=== PATIENT | male | born 1975 | race Caucasian/White ===

== ENCOUNTER 2017-03-21 13:22 | Emergency (ER) | payer OTHER ==
[2017-03-21 14:04] LABS: BASOPHILS 0.6 %; BASOPHILS ABSOLUTE 0.06 10/3/uL (0.0-0.16); EOSINOPHILS 6.1 %; EOSINOPHILS ABSOLUTE 0.57 10/3/uL (0.0-0.53); ER CBC TAT 0 Hrs 08 Mins; HEMATOCRIT 45.5 % (40.0-51.0); HEMOGLOBIN 15.4 g/dL (13.6-17.8); IMMATURE GRANULOCYTES 0.2 %; IMMATURE GRANULOCYTES ABSOLUTE 0.02 10/3/uL (0.0-0.11); LYMPHOCYTES 46.7 %; LYMPHOCYTES ABSOLUTE 4.35 10/3/uL (0.67-4.30); MEAN CORPUS HGB CONC 33.8 g/dL (32.0-36.0); MEAN CORPUSCULAR HEMOGLOB 30.4 pg (26.0-34.0); MEAN CORPUSCULAR VOLUME 89.7 fL (80-100); MEAN PLATELET VOLUME 9.4 fL (9.2-13.0); MONOCYTES 8.8 %; MONOCYTES ABSOLUTE 0.82 10/3/uL (0.21-1.20); NEUTROPHILS 37.6 %; PLATELET COUNT 323 10/3/uL (150-400); RBC DISTRIBUTION WIDTH 13.3 % (12.0-16.0); RED CELL COUNT 5.07 10/6/uL (4.7-6.1); WHITE BLOOD CELLS 9.3 10/3/uL (4.5-10.5)
[2017-03-21 14:05] LABS: MANUAL DIFF NO %
[2017-03-21 14:16] LABS: A/G RATIO 0.9 (0.7-1.9); ALBUMIN 3.1 G/DL (3.5-5.0); ALKALINE PHOSPHATASE 106 U/L (45-117); BUN (BLOOD UREA NITROGEN) 11 MG/DL (6-23); CALCIUM, SERUM 8.3 MG/DL (8.5-10.4); CHLORIDE, SERUM 110 MMOL/L (96-112); CO2 (CARBON DIOXIDE) 30 MMOL/L (24-34); CREATININE 0.77 MG/DL (0.70-1.30); GFR AFRICAN AMERICAN 131 ML/MIN (>=60); GFR NON AFRICAN AMERICAN 113 ML/MIN (>=60); GLOBULIN 3.4 G/DL (2.5-4.1); GLUCOSE, SERUM 128 MG/DL (60-99); SGPT(ALT) 33 U/L (5-65); SODIUM, SERUM 142 MMOL/L (135-148); TOTAL BILIRUBIN 0.2 MG/DL (0-1.2); TOTAL PROTEIN 6.5 G/DL (6.0-8.5)
[2017-03-21 14:17] LABS: POTASSIUM, SERUM 4.3 MMOL/L (3.5-5.3)
[2017-03-21 14:18] LABS: SGOT(AST) 19 U/L (5-40)
[2017-03-21 14:40] LABS: ASCORBIC ACID (UR NOT ORDER) NEG (NEG); BILIRUBIN, URINE NEGATIVE (NEG); ER URINALYSIS TAT 0 Hrs 10 Mins; KETONE, URINE NEGATIVE (NEG); LEUKOCYTE ESTERASE(NOT OR NEG (NEG); NITRITE (URINE) NEG (NEG); WBC (NOT ORDERED) (RFLEX) < 1 (0-5)
[2017-03-21 15:14] LABS: TROPONIN I <0.02 NG/ML (<0.05)
== END 2017-03-21 15:41 | disposition home or self-care (01) ==
LOC: ER 13:22
PROVIDERS: Nurse Practitioner Acute Care
DX: K80.50 Calculus of bile duct without cholangitis or cholecystitis without obstruction (principal); I10 Essential (primary) hypertension; F17.200 Nicotine dependence, unspecified, uncomplicated
CPT/HCPCS: 80053; 81001; 83690; 84484; 85025; 93005; 96374; 96375; 99284; J1170; J2405

== ENCOUNTER 2017-03-31 21:40 | Inpatient (IN) | payer OTHER ==
--- NOTE | ~2017-03-31 | HP ---
History And Physical [place] [id number] [facility] [place]. [address] NAME: JAZMYN STARK : 75 STATUS : ADM Diony PAT#: [id number] AGE: 41 ADM/REG DATE : 03/31/17 MR#: [id number] REPORT SERV DATE: 04/01/17 DICTATED BY: DAINA HOFFMANN DATE: 04/01/17 REPORT STATUS : Draft TRANSCRIBED BY: MODL DATE: 04/01/17 DATE OF ADMISSION: 03/31/2017 CHIEF COMPLAINT: A 41-year-old male presenting with right upper quadrant pain and right shoulder pain. HISTORY OF PRESENT ILLNESS: The patient's history was obtained through careful interview with the patient and , coupled with review of [facility] medical records. The patient for more than a month now has been having intermittent right upper quadrant abdominal pain that radiates into his right shoulder. He actually came to the emergency department on March 21 and was given a diagnosis of "biliary colic" and was seen outpatient by Dr. Teran, surgeon, who believed that the patient needed his gallbladder out. The patient was feeling fine but then two days ago, began to have increasing abdominal pain again. He describes right upper quadrant pain radiating to the right shoulder and to the epigastric area and sometimes towards the back. It has a cramping quality, sometimes a sharp quality, 9/10 severity at its worse. The patient has had some vomiting and nausea. He has had chills. His abdominal pain is worsened by food intake. There have been no fevers. He has had mild diarrhea. He has had some shortness of breath associated with his pain as well and sometimes he describes it as "stomach convulsing." REVIEW OF SYSTEMS: Otherwise 14-point review of systems was obtained and was negative. PAST MEDICAL HISTORY: 1. Diverticulitis with diverticular abscess. 2. Hypertension. 3. No cardiac disease, no lung disease. PAST SURGICAL HISTORY: 1. Ankle surgery x3. 2. Partial colectomy for diverticular abscess in 2016 at [facility]. 3. Compartment syndrome of the lower extremities. ALLERGIES: NO KNOWN DRUG ALLERGIES. SOCIAL HISTORY: He is . He served in the [employer] for 26 years in [place] and [place], now he works as a blanca at a grocery store. He has one 17-year-old son. He is . Lives in [place], [place]. He smokes cigarettes. No alcohol use. FAMILY HISTORY: Diabetes. History And Physical [address] [address] NAME: JAZMYN STARK : 75 STATUS : ADM Diony PAT#: [id number] AGE: 41 ADM/REG DATE : 03/31/17 MR#: [id number] REPORT SERV DATE: 04/01/17 DICTATED BY: DAINA HOFFMANN DATE: 04/01/17 REPORT STATUS : Draft TRANSCRIBED BY: KIMBERLY DATE: 04/01/17 CURRENT MEDICATIONS: Lisinopril 40 mg p.o. daily. PHYSICAL EXAMINATION: VITAL SIGNS: Temperature 97.8, pulse 91, blood pressure 148/84, respiratory rate 20, and O2 saturation 99% on room air. GENERAL: A pleasant, cooperative male, but he describes distress and looks distressed because of his abdominal pain and nausea. HEENT: Pupils equal, round, and reactive to light. No conjunctival pallor. No scleral icterus. Nares are patent. Oropharynx is clear of obstruction. Moist mucous membranes. NECK: Trachea midline. No thyromegaly. LYMPH: No cervical lymphadenopathy. No supraclavicular lymphadenopathy. RESPIRATORY: Clear to auscultation at bases. No wheezes, rales, or rhonchi. Normal respiratory effort. CARDIOVASCULAR: Regular rate and rhythm. No murmurs, rubs, or gallops. No current extremity edema is appreciated. ABDOMEN: Significant right upper quadrant pain, significant epigastric abdominal pain. No flank tenderness. No rebound. No guarding. Nondistended. No hepatosplenomegaly can be appreciated. DERMATOLOGICAL: Warm, dry extremities. No pallor, no cyanosis. PSYCHIATRIC: Normal affect. Good mood. Alert and oriented x3. LABORATORY DATA: White blood cell count 12.0, hemoglobin 16, hematocrit 47, platelets 355. Sodium 143, potassium 4.5, chloride 111, bicarb 29, BUN 10, creatinine 0.73, glucose 111, lipase 1162. Liver enzymes within normal limits. Urinalysis negative for infection. STUDIES: 1. CT of the abdomen and pelvis shows no acute intraabdominal process. 2. EKG by my own evaluation shows sinus rhythm, no major abnormalities. ASSESSMENT AND PLAN: 1. Biliary colic, has been advised to have a cholecystectomy. We will ask for surgery consult with Dr. Teran. 2. Biliary pancreatitis, mild. No evidence on CT scan but just by exam and mild elevation in lipase. Provide supportive care. Placed on IV narcotic pain management and IV fluids. 3. Leukocytosis, empiric IV antibiotics. KPL/MODL Daina Hoffmann M.D. / [id number] CC: History And Physical [address] [address] NAME: JAZMYN STARK : 75 STATUS : ADM Diony PAT#: [id number] AGE: 41 ADM/REG DATE : 03/31/17 MR#: [id number] REPORT SERV DATE: 04/01/17 DICTATED BY: DAINA HOFFMANN DATE: 04/01/17 REPORT STATUS : Draft TRANSCRIBED BY: KIMBERLY DATE: 04/01/17 Della Diallo M.D. Roby Teran M.D.
--- NOTE | ~2017-03-31 | OP ---
Record Of Operation [facility] [address] [place]. [address] NAME: JAZMYN STARK : 75 STATUS : DIS IN PAT#: [id number] AGE: 41 ADM/REG DATE : 03/31/17 MR#: [id number] REPORT SERV DATE: 04/03/17 DICTATED BY: EDWIN TOM DATE: 04/03/17 REPORT STATUS : Draft TRANSCRIBED BY: MODL DATE: 04/03/17 DATE OF PROCEDURE: 04/02/2017 PREOPERATIVE DIAGNOSES: 1. Chronic cholecystitis with cholelithiasis. 2. Biliary pancreatitis. POSTOPERATIVE DIAGNOSES: 1. Chronic cholecystitis with cholelithiasis. 2. Biliary pancreatitis. PROCEDURE: 1. Laparoscopic cholecystectomy (two-site). 2. Laparoscopic intraoperative cholangiogram. DESCRIPTION OF OPERATIVE PROCEDURE: The patient was brought to the operating suite, placed in supine position, underwent satisfactory general endotracheal anesthesia without incident. The skin of the abdomen was scrubbed, prepped, and draped in usual sterile fashion. 0.5% Marcaine with epinephrine was utilized as supplemental local anesthesia at all intended trocar sites. Initially, an infraumbilical incision was performed dissecting through the skin and subcutaneous tissues to the umbilical fascia. This was grasped with a Dony clamp and elevated and a disposable Veress insufflation needle was inserted through the umbilical fascia into the peritoneal cavity. Intraperitoneal tip location ascertained using saline hanging drop method. CO2 insufflated for pressures of 15 mmHg throughout the case. After adequate insufflation pressure achieved, Veress needle was removed. Disposable bladed/shielded 11 mm trocar inserted through the umbilical fascia into the peritoneal cavity following which a rigid forward-viewing 10 mm laparoscope was inserted. Visualization of the intraabdominal parietes revealed no evidence of injury from initial insufflation or puncture. A cursory examination of pelvis was normal. Attention was turned to the upper abdomen where an additional 5 mm trocar was placed to the right of the falciform ligament and then an additional 5 mm grasping instrument inserted through the umbilical fascia next to the umbilical trocar. The fundus and body of the gallbladder grasped and elevated. There were some edematous changes from the biliary pancreatitis. Dissection of the triangle of Calot was successful in identifying and skeletonizing the cystic duct and cystic duct and common duct junction as well as the cystic artery. The cystic duct was isolated and a single clip was placed on the gallbladder side of the cystic duct. A small enterotomy was created in the cystic duct and then a percutaneously introduced cholangiosheath was inserted through the upper abdominal wall under direct visualization. A saline flush cholangiocath was trimmed and inserted down the sheath, flushed with saline, Record Of Operation [facility] [address] [place]. [address] NAME: JAZMYN STARK : 75 STATUS : DIS IN PAT#: [id number] AGE: 41 ADM/REG DATE : 03/31/17 MR#: [id number] REPORT SERV DATE: 04/03/17 DICTATED BY: EDWIN TOM DATE: 04/03/17 REPORT STATUS : Draft TRANSCRIBED BY: KIMBERLY DATE: 04/03/17 and advanced into the cystic duct. It was retained with a plastic locking clip. Sequential fluoroscopic cholangiography was performed revealing excellent visualization of both the intra and extrahepatic biliary ductal system. Specifically, there was no ductal dilatation. No major aberrant ductal anatomy and there was noted to be free spillage of dye into the duodenum. The retaining clip was removed as well as the cholangiocath. The cystic duct was controlled with further polymer clips, and likewise, the cystic artery was controlled and divided as well as the cystic duct. Using spatula cautery dissection, the peritoneal attachments to the gallbladder and liver were divided. The gallbladder was removed from the subhepatic space. Hemostasis was assured. Next, the camera was switched to the 5 mm epigastric port. An Endo retrieval pouch was inserted through the umbilical port and the gallbladder was placed inside this for retrieval. Trocars were removed. No muscular bleeding was noted. The gallbladder retrieved inside the Endo retrieval pouch, it was opened and found to contain a lot of small stones. CO2 was allowed to egress from peritoneal cavity. No muscular bleeding was noted. The umbilicus was closed with [id number] suture of 0 Vicryl, subcutaneous tissue closed with interrupted 4-0 Vicryl, running subcuticular stitch 4-0 Vicryl for the skin. Dermabond skin adhesive placed. The patient tolerated the procedure well and was returned to PACU in stable condition. At the termination of the procedure, sponge, needle, lap, and instrument counts were correct x3. ESTIMATED BLOOD LOSS: Less than 5-10 mL. WR/MODL Edwin Tom M.D. / [id number] CC: Della Hagan M.D.
--- NOTE | ~2017-03-31 | DS ---
Discharge Summary [facility] [address] [place]. [address] NAME: JAZMYN STARK : 75 STATUS : DIS IN PAT#: [id number] AGE: 41 ADM/REG DATE : 03/31/17 MR#: [id number] REPORT SERV DATE: 04/03/17 DICTATED BY: JEFFERY ELLINGTON DATE: 04/02/17 REPORT STATUS : Draft TRANSCRIBED BY: MODL DATE: 04/02/17 ADMISSION DATE: 03/31/2017 DISCHARGE DATE: 04/02/2017 DISCHARGE DIAGNOSES: Biliary colic in the setting of chronic cholecystitis and his acute pancreatitis that have resolved now, abdominal pain, leukocytosis, and hypertension. DISCHARGE MEDICATION: Lisinopril 40 mg daily. HISTORY OF PRESENT ILLNESS: A pleasant 41-year-old white male, presented with right upper quadrant abdominal pain, right shoulder pain. Please see the initial H and P of Dr. Jake Lockhart. This patient is admitted to the Hospitalist Service for further evaluation and treatment. CONSULTANTS DURING THIS ADMISSION: Include General Surgery, Dr. Isidro. CONTINUATION IN HOSPITAL COURSE: The patient was initially placed on IV antibiotics, fluids. Lab work was ordered and followed with consultation placed to General Surgery for further workup. The patient was seen by Dr. Isidro, who recommended laparoscopic cholecystectomy to be performed given his elevated lipase, persistent symptoms of abdominal pain. The patient remained afebrile. White blood cells trended upwards to 13.3. His antibiotics were stopped. He underwent the laparoscopic cholecystectomy on 04/02/2017 and recovered well from that. His lipase trended downward from 1162 to 155. He has felt well postoperatively. During this admission, his blood pressures have been somewhat elevated in the 160-170 systolic range. I have recommended post discharge a followup with his primary care, Dr. Jeffery Enriquez for discussion regarding his hypertension and followup post hospitalization. The patient is in agreement with this plan going forward, so he will be discharged on the evening of 04/02/2017 with that medication regimen and follow up plan. DICTATED BY: Jeffery Ellington NP CSC/KIMBERLY Jeffery Ellington NP / [id number] CC: Opal Morrell M.D. Jeffery Enriquez M.D.
[2017-03-31 20:31] LABS: BASOPHILS 0.5 %; BASOPHILS ABSOLUTE 0.06 10/3/uL (0.0-0.16); EOSINOPHILS 8.5 %; EOSINOPHILS ABSOLUTE 1.02 10/3/uL (0.0-0.53); ER CBC TAT 0 Hrs 09 Mins; HEMATOCRIT 47.5 % (40.0-51.0); HEMOGLOBIN 16.2 g/dL (13.6-17.8); IMMATURE GRANULOCYTES 0.2 %; IMMATURE GRANULOCYTES ABSOLUTE 0.02 10/3/uL (0.0-0.11); LYMPHOCYTES 37.7 %; LYMPHOCYTES ABSOLUTE 4.54 10/3/uL (0.67-4.30); MANUAL DIFF NO %; MEAN CORPUS HGB CONC 34.1 g/dL (32.0-36.0); MEAN CORPUSCULAR HEMOGLOB 29.8 pg (26.0-34.0); MEAN CORPUSCULAR VOLUME 87.3 fL (80-100); MEAN PLATELET VOLUME 9.8 fL (9.2-13.0); MONOCYTES 9.1 %; PLATELET COUNT 355 10/3/uL (150-400); RBC DISTRIBUTION WIDTH 13.2 % (12.0-16.0); RED CELL COUNT 5.44 10/6/uL (4.7-6.1)
[2017-03-31 20:50] LABS: A/G RATIO 0.9 (0.7-1.9); ALBUMIN 3.5 G/DL (3.5-5.0); ALKALINE PHOSPHATASE 108 U/L (45-117); BUN (BLOOD UREA NITROGEN) 10 MG/DL (6-23); CALCIUM, SERUM 8.4 MG/DL (8.5-10.4); CHLORIDE, SERUM 111 MMOL/L (96-112); CO2 (CARBON DIOXIDE) 29 MMOL/L (24-34); CREATININE 0.73 MG/DL (0.70-1.30); GFR AFRICAN AMERICAN 134 ML/MIN (>=60); GFR NON AFRICAN AMERICAN 115 ML/MIN (>=60); GLOBULIN 3.7 G/DL (2.5-4.1); GLUCOSE, SERUM 111 MG/DL (60-99); POTASSIUM, SERUM 4.5 MMOL/L (3.5-5.3); SGPT(ALT) 31 U/L (5-65); SODIUM, SERUM 143 MMOL/L (135-148); TOTAL BILIRUBIN 0.4 MG/DL (0-1.2); TOTAL PROTEIN 7.2 G/DL (6.0-8.5)
[2017-03-31 20:53] LABS: SGOT(AST) 17 U/L (5-40)
[2017-03-31 20:54] LABS: ASCORBIC ACID (UR NOT ORDER) NEG (NEG); BILIRUBIN, URINE NEGATIVE (NEG); KETONE, URINE NEGATIVE (NEG); LEUKOCYTE ESTERASE(NOT OR NEG (NEG); NITRITE (URINE) NEG (NEG); WBC (NOT ORDERED) (RFLEX) < 1 (0-5)
[2017-03-31 20:56] LABS: ER URINALYSIS TAT 0 Hrs 32 Mins
[2017-03-31 21:36] LABS: DIRECT BILIRUBIN < 0.1 MG/DL (0.0-0.4); INDIRECT BILIRUBIN(NOT ORDER) 0.3 MG/DL (0.1-0.9)
[2017-03-31] MEDS ORDERED: ZESTRIL40 MG PO (23:43)
[2017-04-01 05:32] LABS: INTERNATIONAL NORMAL RATI 1.1 UNITS (-); PARTIAL THROMBO TIME 28.3 SEC (22.5-37.2); PROTIME (NOT ORD) 13.8 SEC (12.0-14.5)
[2017-04-01 05:35] LABS: HEMATOCRIT 44.5 % (40.0-51.0); MEAN CORPUS HGB CONC 33.7 g/dL (32.0-36.0); MEAN CORPUSCULAR HEMOGLOB 29.4 pg (26.0-34.0); MEAN CORPUSCULAR VOLUME 87.1 fL (80-100); MEAN PLATELET VOLUME 10.2 fL (9.2-13.0); PLATELET COUNT 319 10/3/uL (150-400); RBC DISTRIBUTION WIDTH 13.4 % (12.0-16.0); RED CELL COUNT 5.11 10/6/uL (4.7-6.1); WHITE BLOOD CELLS 13.3 10/3/uL (4.5-10.5)
[2017-04-01 05:36] LABS: MANUAL DIFF YES %
[2017-04-01 05:59] LABS: ALBUMIN 3.3 G/DL (3.5-5.0); BUN (BLOOD UREA NITROGEN) 9 MG/DL (6-23); CALCIUM, SERUM 8.5 MG/DL (8.5-10.4); CHLORIDE, SERUM 108 MMOL/L (96-112); CO2 (CARBON DIOXIDE) 26 MMOL/L (24-34); CREATININE 0.74 MG/DL (0.70-1.30); GFR AFRICAN AMERICAN 133 ML/MIN (>=60); GFR NON AFRICAN AMERICAN 115 ML/MIN (>=60); GLOBULIN 3.3 G/DL (2.5-4.1); GLUCOSE, SERUM 91 MG/DL (60-99); POTASSIUM, SERUM 4.2 MMOL/L (3.5-5.3); SGOT(AST) 14 U/L (5-40); SGPT(ALT) 30 U/L (5-65); SODIUM, SERUM 139 MMOL/L (135-148); TOTAL BILIRUBIN 0.3 MG/DL (0-1.2); TOTAL PROTEIN 6.6 G/DL (6.0-8.5); TROPONIN I <0.02 NG/ML (<0.05)
[2017-04-01 06:01] LABS: ALKALINE PHOSPHATASE 90 U/L (45-117)
[2017-04-01 06:19] LABS: BASOPHILS 2 %; BASOPHILS ABSOLUTE (CALC) 0.27 10/3/uL (0.0-0.16); EOSINOPHILS 6 %; LYMPHOCYTES 37 %; LYMPHOCYTES ABSOLUTE (CALC) 4.92 10/3/uL (0.67-4.30); METAMYELOCYTES 3 %; MONOCYTES 4 %; MONOCYTES ABSOLUTE (CALC) 0.53 10/3/uL (0.21-1.20); NEUTROPHILS ABSOLUTE (CALC) 6.38 10/3/uL (2.02-8.40); PLATELET ESTIMATE ADQ (ADEQUATE); SEGMENTED NEUTROPHIL (0) 48 %; TOTAL NUCLEATED CELLS 100
[2017-04-01 06:20] LABS: RBC MORPHOLOGY NORM (NORMAL)
[2017-04-02 03:55] LABS: BASOPHILS 0.4 %; BASOPHILS ABSOLUTE 0.05 10/3/uL (0.0-0.16); EOSINOPHILS 6.6 %; EOSINOPHILS ABSOLUTE 0.82 10/3/uL (0.0-0.53); HEMATOCRIT 47.3 % (40.0-51.0); HEMOGLOBIN 16.1 g/dL (13.6-17.8); IMMATURE GRANULOCYTES 0.3 %; IMMATURE GRANULOCYTES ABSOLUTE 0.04 10/3/uL (0.0-0.11); LYMPHOCYTES 31.6 %; LYMPHOCYTES ABSOLUTE 3.93 10/3/uL (0.67-4.30); MEAN CORPUSCULAR VOLUME 88.2 fL (80-100); MONOCYTES ABSOLUTE 1.12 10/3/uL (0.21-1.20); NEUTROPHILS 52.1 %; NEUTROPHILS ABSOLUTE 6.48 10/3/uL (2.02-8.40); PLATELET COUNT 328 10/3/uL (150-400); RBC DISTRIBUTION WIDTH 13.2 % (12.0-16.0); RED CELL COUNT 5.36 10/6/uL (4.7-6.1); WHITE BLOOD CELLS 12.4 10/3/uL (4.5-10.5)
[2017-04-02 03:56] LABS: MANUAL DIFF NO %
[2017-04-02 04:09] LABS: ALBUMIN 3.6 G/DL (3.5-5.0); BUN (BLOOD UREA NITROGEN) 10 MG/DL (6-23); CHLORIDE, SERUM 108 MMOL/L (96-112); CO2 (CARBON DIOXIDE) 29 MMOL/L (24-34); CREATININE 0.86 MG/DL (0.70-1.30); GFR AFRICAN AMERICAN 125 ML/MIN (>=60); GFR NON AFRICAN AMERICAN 108 ML/MIN (>=60); GLOBULIN 3.6 G/DL (2.5-4.1); GLUCOSE, SERUM 91 MG/DL (60-99); POTASSIUM, SERUM 4.5 MMOL/L (3.5-5.3); SGOT(AST) 13 U/L (5-40); SGPT(ALT) 26 U/L (5-65); SODIUM, SERUM 141 MMOL/L (135-148); TOTAL BILIRUBIN 0.6 MG/DL (0-1.2); TOTAL PROTEIN 7.2 G/DL (6.0-8.5)
[2017-04-02 04:28] LABS: ALKALINE PHOSPHATASE 108 U/L (45-117)
== END 2017-04-02 18:10 | disposition home or self-care (01) | DRG 418 ==
LOC: ER 21:40 → CDU1 22:59 → SDC/OF 04-02 13:33
PROVIDERS: Hospitalist; Internal Medicine; Specialist
PROC: BF121ZZ Fluoroscopy of Gallbladder using Low Osmolar Contrast (ICD-10-PCS; 2017-04-02)
PROC: 0FT44ZZ Resection of Gallbladder, Percutaneous Endoscopic Approach (ICD-10-PCS; principal; 2017-04-02 13:00)
DX: K85.10 Biliary acute pancreatitis without necrosis or infection (principal); K80.10 Calculus of gallbladder with chronic cholecystitis without obstruction; I10 Essential (primary) hypertension; F17.210 Nicotine dependence, cigarettes, uncomplicated; Z83.3 Family history of diabetes mellitus; Z90.49 Acquired absence of other specified parts of digestive tract; Z98.890 Other specified postprocedural states
CPT/HCPCS: 74176; 74300; 80053; 81001; 82248; 83690; 83735; 84443; 84484; 85025; 85610; 85730; 88304; 93005; 96374; 96375; 99285; A9270-GY; C9113; J0360; J0690; J1170; J1956; J2250; J2405; J2550; J2710; J3010; Q9967

== ENCOUNTER 2017-04-08 12:02 | Emergency (ER) | payer OTHER ==
[2017-04-08 12:02] LABS: BASOPHILS 0.7 %; BASOPHILS ABSOLUTE 0.09 10/3/uL (0.0-0.16); HEMATOCRIT 47.8 % (40.0-51.0); IMMATURE GRANULOCYTES 0.7 %; IMMATURE GRANULOCYTES ABSOLUTE 0.09 10/3/uL (0.0-0.11); LYMPHOCYTES 30.2 %; LYMPHOCYTES ABSOLUTE 4.06 10/3/uL (0.67-4.30); MEAN CORPUS HGB CONC 33.5 g/dL (32.0-36.0); MEAN CORPUSCULAR HEMOGLOB 29.5 pg (26.0-34.0); MEAN CORPUSCULAR VOLUME 88.2 fL (80-100); MEAN PLATELET VOLUME 9.6 fL (9.2-13.0); MONOCYTES 8.8 %; MONOCYTES ABSOLUTE 1.18 10/3/uL (0.21-1.20); NEUTROPHILS 53.6 %; NEUTROPHILS ABSOLUTE 7.21 10/3/uL (2.02-8.40); PLATELET COUNT 384 10/3/uL (150-400); RBC DISTRIBUTION WIDTH 13.7 % (12.0-16.0); RED CELL COUNT 5.42 10/6/uL (4.7-6.1); WHITE BLOOD CELLS 13.4 10/3/uL (4.5-10.5)
[~2017-04-08 12:02] MED LIST: ZESTRIL40 MG PO
[2017-04-08 12:03] LABS: MANUAL DIFF NO %
[2017-04-08 12:11] LABS: PARTIAL THROMBO TIME 25.8 SEC (22.5-37.2); PROTIME (NOT ORD) 13.2 SEC (12.0-14.5)
[2017-04-08 12:17] LABS: BUN (BLOOD UREA NITROGEN) 14 MG/DL (6-23); CALCIUM, SERUM 9.3 MG/DL (8.5-10.4); CHEST PAIN PROFILE TAT 0 Hrs 19 Mins; CHLORIDE, SERUM 108 MMOL/L (96-112); CREATININE 0.75 MG/DL (0.70-1.30); GFR AFRICAN AMERICAN 132 ML/MIN (>=60); GFR NON AFRICAN AMERICAN 114 ML/MIN (>=60); GLUCOSE, SERUM 109 MG/DL (60-99); POTASSIUM, SERUM 4.2 MMOL/L (3.5-5.3); SODIUM, SERUM 144 MMOL/L (135-148); TROPONIN I <0.02 NG/ML (<0.05)
[2017-04-08 12:18] LABS: CO2 (CARBON DIOXIDE) 28 MMOL/L (24-34)
== END 2017-04-08 15:36 | disposition home or self-care (01) ==
LOC: ER 12:02
PROVIDERS: Emergency Medicine
DX: M54.6 Pain in thoracic spine (principal); I10 Essential (primary) hypertension; F17.200 Nicotine dependence, unspecified, uncomplicated; F90.9 Attention-deficit hyperactivity disorder, unspecified type; Z87.442 Personal history of urinary calculi; Z88.5 Allergy status to narcotic agent; Z79.899 Other long term (current) drug therapy; Z90.49 Acquired absence of other specified parts of digestive tract
CPT/HCPCS: 71010; 71275; 74177; 80048; 83690; 83735; 84484; 85025; 85610; 85730; 93005; 96374; 96375; 99285; J1170; J2405; Q9967

== ENCOUNTER 2017-04-15 18:41 | Emergency (ER) | payer OTHER ==
[2017-04-15 18:59] LABS: WBC (NOT ORDERED) (RFLEX) 0 (0-5)
[2017-04-15 19:07] LABS: BASOPHILS 0.6 %; BASOPHILS ABSOLUTE 0.07 10/3/uL (0.0-0.16); EOSINOPHILS ABSOLUTE 0.59 10/3/uL (0.0-0.53); ER CBC TAT 0 Hrs 13 Mins; HEMATOCRIT 47.1 % (40.0-51.0); HEMOGLOBIN 15.8 g/dL (13.6-17.8); IMMATURE GRANULOCYTES 0.3 %; IMMATURE GRANULOCYTES ABSOLUTE 0.04 10/3/uL (0.0-0.11); LYMPHOCYTES 31.5 %; LYMPHOCYTES ABSOLUTE 3.73 10/3/uL (0.67-4.30); MANUAL DIFF NO %; MEAN CORPUS HGB CONC 33.5 g/dL (32.0-36.0); MEAN CORPUSCULAR HEMOGLOB 29.8 pg (26.0-34.0); MEAN CORPUSCULAR VOLUME 88.7 fL (80-100); MEAN PLATELET VOLUME 9.5 fL (9.2-13.0); MONOCYTES 9.7 %; MONOCYTES ABSOLUTE 1.15 10/3/uL (0.21-1.20); NEUTROPHILS 52.9 %; NEUTROPHILS ABSOLUTE 6.26 10/3/uL (2.02-8.40); PLATELET COUNT 341 10/3/uL (150-400); RBC DISTRIBUTION WIDTH 14.1 % (12.0-16.0); RED CELL COUNT 5.31 10/6/uL (4.7-6.1); WHITE BLOOD CELLS 11.8 10/3/uL (4.5-10.5)
[2017-04-15 19:12] LABS: ASCORBIC ACID (UR NOT ORDER) NEG (NEG); BILIRUBIN, URINE NEGATIVE (NEG); ER URINALYSIS TAT 0 Hrs 18 Mins; KETONE, URINE NEGATIVE (NEG); LEUKOCYTE ESTERASE(NOT OR NEG (NEG); NITRITE (URINE) NEG (NEG)
[2017-04-15 19:21] LABS: ALBUMIN 3.6 G/DL (3.5-5.0); BUN (BLOOD UREA NITROGEN) 14 MG/DL (6-23); CALCIUM, SERUM 9.1 MG/DL (8.5-10.4); CHLORIDE, SERUM 107 MMOL/L (96-112); CO2 (CARBON DIOXIDE) 30 MMOL/L (24-34); CREATININE 0.76 MG/DL (0.70-1.30); GFR AFRICAN AMERICAN 131 ML/MIN (>=60); GFR NON AFRICAN AMERICAN 113 ML/MIN (>=60); GLOBULIN 3.6 G/DL (2.5-4.1); POTASSIUM, SERUM 4.3 MMOL/L (3.5-5.3); SGPT(ALT) 57 U/L (5-65); SODIUM, SERUM 140 MMOL/L (135-148); TOTAL BILIRUBIN 0.4 MG/DL (0-1.2); TOTAL PROTEIN 7.2 G/DL (6.0-8.5)
[2017-04-15 19:22] LABS: ALKALINE PHOSPHATASE 95 U/L (45-117); GLUCOSE, SERUM 135 MG/DL (60-99); SGOT(AST) 25 U/L (5-40)
[2017-04-15 23:14] LABS: DIRECT BILIRUBIN < 0.1 MG/DL (0.0-0.4); INDIRECT BILIRUBIN(NOT ORDER) 0.3 MG/DL (0.1-0.9)
== END 2017-04-16 01:38 | disposition home or self-care (01) ==
LOC: ER 18:41
PROVIDERS: Emergency Medicine
DX: R10.12 Left upper quadrant pain (principal); R11.0 Nausea; I10 Essential (primary) hypertension; F17.200 Nicotine dependence, unspecified, uncomplicated; Z88.5 Allergy status to narcotic agent; Z79.899 Other long term (current) drug therapy
CPT/HCPCS: 74176; 80053; 81001; 82248; 83690; 85025; 96374; 96375; 99284; J1170; J2360; J2405